=== PATIENT | male | born 1995 | race Caucasian/White ===

== ENCOUNTER 2019-09-07 18:37 | Emergency (ER) | payer OTHER ==
[2019-09-07] MEDS ORDERED: TETANUS & DIPHTHERIA TOX,ADULT 0.5 ML VIAL ONE (19:05)
[2019-09-07] MEDS ORDERED: BUPIVACAINE 0.5% PF 10 ML VIAL ONE (19:05)
--- NOTE | 2019-09-07 20:17 | ER ---
Nurse's Notes [facility] Name: Bennett Martin Age: 24 yrs Sex: Male : 1995 Arrival Date: 09/07/2019 Time: 18:41 Bed 9 Private MD: Diagnosis: Thumb Laceration Presentation: 09/06 18:51 Chief complaint: Patient states: was at work and was slicing food and cut his left em thumb, lac. noted to the left thumb, bleeding has stopped, unknown last tetanus shot. Coronavirus screen: Proceed with normal triage. Patient denies a cough. Patient denies shortness of breath or difficulty breathing. Patient denies measured and/or subjective temperature greater than 100.4F prior to today's visit. Patient denies travel on a cruise ship or to a country the [facility] currently lists as an affected area. Patient denies contact with known and/or suspected case of COVID-19. Ebola Screen: Patient negative for fever greater than or equal to 101.5 degrees Fahrenheit, and additional compatible Ebola Virus Disease symptoms Patient denies exposure to infectious person. Patient denies travel to an Ebola-affected area in the 21 days before illness onset. No symptoms or risks identified at this time. Initial Sepsis Screen: Does the patient meet any 2 criteria? No. Patient's initial sepsis screen is negative. Does the patient have a suspected source of infection? Yes: Skin breakdown/wound. Risk Assessment: Do you want to hurt yourself or someone else? Patient reports no desire to harm self or others. Onset of symptoms was September 07, 2019. 18:51 Method Of Arrival: Ambulatory em 18:51 Acuity: DOYLE 4 em Historical: - Allergies: 18:54 No Known Allergies; em - PMHx: 18:54 Heart Murmur; ADD/ADHD; em - PSHx: 18:54 Appendectomy; Ear Tubes; em - Immunization history:: Last tetanus immunization: unknown. - Social history:: Smoking status: Patient reports the use of cigarette tobacco products, denies chronic smoking, but will smoke occasionally. Screenin:55 Abuse screen: Denies threats or abuse. Nutritional screening: No deficits noted. em Tuberculosis screening: No symptoms or risk factors identified. Fall Risk None identified. Assessment: 19:13 General: Appears uncomfortable, Behavior is appropriate for age. Pain: Complains of ea pain in palmar aspect of distal phalanx of right thumb. Neuro: Level of Consciousness is awake, alert, obeys commands, Oriented to person, place, time. Respiratory: Airway is patent Respiratory effort is even, unlabored, Respiratory pattern is regular, symmetrical. Derm: Skin is pink, warm \T\ dry. Injury Description: Laceration sustained to dorsal aspect of distal phalanx of left thumb is not bleeding. 20:25 Reassessment: Patient appears in no apparent distress at this time. Patient is alert, rr5 oriented x 3, equal unlabored respirations, skin warm/dry/pink. discharge instruction given and explained without complaints made. Vital Signs: 18:51 BP 154 / 91; Pulse 89; Resp 18; Temp 97.6; Pulse Ox 100% on R/A; Weight 56.7 kg; Height em 5 ft. 8 in. (172.72 cm); Pain 5/10; 20:10 BP 125 / 78; Pulse 80; Resp 17; Pulse Ox 99% on R/A; rr5 18:51 Body Mass Index 19.01 (56.70 kg, 172.72 cm) em ED Course: 18:41 Patient arrived in ED. mr 18:46 Carrington Mcdonald PA is PHCP. jm 18:46 Tomer Ames MD is Attending Physician. [facility] 18:51 Stanton Muller, RAVI is Primary Nurse. em 18:54 Triage completed. em 18:54 Arm band placed on. em 19:15 Patient has correct armband on for positive identification. Bed in low position. Call ea light in reach. 20:00 Assist provider with laceration repair on left hand and dorsal aspect of distal phalanx rr5 of left thumb that was 2.5 cm. or less using sutures. Set up tray. Performed by Carrington JACKSON Dressed with 4X4s, Kerlix, Neosporin, Patient tolerated well. 20:00 Patient did not have IV access during this emergency room visit. rr5 Administered Medications: 19:02 Drug: Tetanus-Diphtheria Toxoid Adult 0.5 ml {Job Molder: [employer]. Exp: em 04/29/2021. Lot #: [id number]. } Route: IM; Site: right deltoid; 20:00 Follow up: Response: No adverse reaction rr5 19:13 Drug: Marcaine (0.5 %) 10 ml {Note: administered by provider.} Volume: 10 ml; Route: ea Infiltration; 20:15 Follow up: Response: No adverse reaction rr5 09/07 00:29 Not Given (Other Intervention Used): Lidocaine (1 %) 5 ml 5 ml Infiltration once; to rr5 bedside Outcome: 09/06 20:16 Discharge ordered by MD. liao 20:25 Discharged to home ambulatory. rr5 20:25 Condition: stable 20:25 Discharge instructions given to patient, Instructed on discharge instructions, follow up and referral plans. wound care, Demonstrated understanding of instructions, follow-up care, wound care. 20:29 Patient left the ED. rr5 09/07 00:30 Patient left the ED. rr5 Signatures: Carrington Mcdonald PA PA jmm Rivera, Mary mr Munoz, Edgar, RN RN Glenys Delgado, RN RN Bucky Montemayor RN RN rr5
--- NOTE | 2019-09-07 20:17 | EDPHYS ---
Physician Documentation [facility] Name: Bennett Martin Age: 24 yrs Sex: Male : 1995 Arrival Date: 09/07/2019 Time: 18:41 Bed 9 Private MD: ED Physician Tomer Ames HPI: 09/06 18:51 This 24 yrs old Male presents to ER via Unassigned with complaints of Thumb jmm Laceration. 18:51 The patient or guardian reports injury, a laceration. Onset: The symptoms/episode jmm began/occurred acutely, just prior to arrival. Modifying factors: The symptoms are alleviated by nothing, the symptoms are aggravated by nothing. This is a 24 year old male with no chronic medical conditions that presents to the ED with complaints of left thumb pain which occurred after accidently slicing his thumb with a knife while at work. Denies other injury. Historical: - Allergies: 18:54 No Known Allergies; em - PMHx: 18:54 Heart Murmur; ADD/ADHD; em - PSHx: 18:54 Appendectomy; Ear Tubes; em - Immunization history:: Last tetanus immunization: unknown. - Social history:: Smoking status: Patient reports the use of cigarette tobacco products, denies chronic smoking, but will smoke occasionally. ROS: 18:51 Constitutional: Negative for fever, chills, and weight loss, Cardiovascular: Negative jmm for chest pain, palpitations, and edema, Respiratory: Negative for shortness of breath, cough, wheezing, and pleuritic chest pain. 18:51 Skin: Positive for laceration(s). 18:51 All other systems are negative. Exam: 18:51 Constitutional: This is a well developed, well nourished patient who is awake, alert, jmm and in no acute distress. Head/Face: atraumatic. Eyes: EOMI, no conjunctival erythema appreciated ENT: Moist Mucus Membranes Neck: Trachea midline, Supple Chest/axilla: Normal chest wall appearance and motion. Cardiovascular: Regular rate and rhythm. No edema appreciated Respiratory: Normal respirations, no respiratory distress appreciated Abdomen/GI: Non distended, soft Back: Normal ROM 18:51 Skin: 2 cm laceration noted to the left distal thumb. 18:51 Neuro: Orientation: is normal, Mentation: is normal, Memory: is normal. 18:51 Psych: Behavior/mood is pleasant, cooperative. Vital Signs: 18:51 BP 154 / 91; Pulse 89; Resp 18; Temp 97.6; Pulse Ox 100% on R/A; Weight 56.7 kg; Height em 5 ft. 8 in. (172.72 cm); Pain 5/10; 20:10 BP 125 / 78; Pulse 80; Resp 17; Pulse Ox 99% on R/A; rr5 18:51 Body Mass Index 19.01 (56.70 kg, 172.72 cm) em Laceration: 20:13 Wound Repair of 3cm ( 1.2in ) subcutaneous laceration to dorsal aspect of distal jmm phalanx of left thumb. Distal neuro/vascular/tendon intact. Anesthesia: Digital block administered with 4 mls of 0.5% marcaine. Wound prep: Simple cleansing with betadine by me. Skin closed with 7 5-0 Prolene using simple sutures and sterile technique. Patient tolerated well. MDM: 18:49 Patient medically screened. [facility] 20:13 Data reviewed: vital signs, nurses notes. Counseling: I had a detailed discussion with yanni the patient and/or guardian regarding: the historical points, exam findings, and any diagnostic results supporting the discharge/admit diagnosis, lab results, the need for outpatient follow up, to return to the emergency department if symptoms worsen or persist or if there are any questions or concerns that arise at home. ED course: Patient given strict return precautions. Patient understood and agrees with the plan of care. . ED course: Patient given wound infection return precautions. . 09/07 00:29 Order name: Prolene, Sutures; Complete Time: 00: rr5 09/07 00:29 Order name: Dressing - Wound; Complete Time: 00:29 rr5 09/07 00:29 Order name: Gloves, Sterile; Complete Time: 00:29 rr5 09/07 00:29 Order name: Setup Suture Tray; Complete Time: 00: rr5 Administered Medications: 19:02 Drug: Tetanus-Diphtheria Toxoid Adult 0.5 ml {Lining [employer] Hand: [employer]. Exp: em 04/29/2021. Lot #: [id number]. } Route: IM; Site: right deltoid; 20:00 Follow up: Response: No adverse reaction rr5 19:13 Drug: Marcaine (0.5 %) 10 ml {Note: administered by provider.} Volume: 10 ml; Route: ea Infiltration; 20:15 Follow up: Response: No adverse reaction 5 09/07 00:29 Not Given (Other Intervention Used): Lidocaine (1 %) 5 ml 5 ml Infiltration once; to rr5 bedside Disposition: 09/07/19 20:16 Discharged to Home. Impression: Thumb Laceration. - Condition is Stable. - Discharge Instructions: Laceration Care, Adult. - Medication Reconciliation Form, Thank You Letter, Antibiotic Education, Prescription Opioid Use, Work release form form. - Follow up: Private Physician; When: 2 - 3 days; Reason: Recheck today's complaints, Continuance of care, Re-evaluation by your physician. Addendum: 09/10/2019 07:20 Co-signature as Attending Physician, Tomer Ames MD. r n Signatures: Carrington Mcdonald PA PA jmm Munoz, Edgar, RN Tomer Jean Baptiste MD MD rn Antunez, Elena, RN RN ea Roque, Raymond RN RN rr5 Corrections: (The following items were deleted from the chart) 09/06 20:29 20:16 09/07/2019 20:16 Discharged to Home. Impression: Thumb Laceration. Condition is rr5 Stable. Forms are Medication Reconciliation Form, Thank You Letter, Antibiotic Education, Prescription Opioid Use. Follow up: Private Physician; When: 2 - 3 days; Reason: Recheck today's complaints, Continuance of care, Re-evaluation by your physician. [facility] 09/07 00:30 09/06 20:29 09/07/2019 20:16 Discharged to Home. Impression: Thumb Laceration. rr5 Condition is Stable. Discharge Instructions: Laceration Care, Adult. Forms are Medication Reconciliation Form, Thank You Letter, Antibiotic Education, Prescription Opioid Use, Work release form. Follow up: Private Physician; When: 2 - 3 days; Reason: Recheck today's complaints, Continuance of care, Re-evaluation by your physician. rr5
[2019-09-07 20:34] VITALS: TEMP 97.6
[2019-09-08 01:09] VITALS: BP 125/78; O2SAT 99
== END 2019-09-08 00:30 | disposition home or self-care (01) ==
LOC: ER 18:37
PROC: 0JQK0ZZ Repair Left Hand Subcutaneous Tissue and Fascia, Open Approach (ICD-10-PCS; principal; 2019-09-08)
DX: S61.012A Laceration without foreign body of left thumb without damage to nail, initial encounter (principal); F17.210 Nicotine dependence, cigarettes, uncomplicated; W26.0XXA Contact with knife, initial encounter; Y93.89 Activity, other specified; Y92.89 Other specified places as the place of occurrence of the external cause; Y99.8 Other external cause status; Z23 Encounter for immunization
CPT/HCPCS: 90471; 90714; 99283

== ENCOUNTER 2019-09-16 12:14 | Emergency (ER) | payer OTHER ==
--- NOTE | 2019-09-16 13:29 | EDPHYS ---
Physician Documentation [facility] Name: Bennett Martin Age: 24 yrs Sex: Male : 1995 Arrival Date: 09/16/2019 Time: 12:23 Bed 12 Private MD: ED Physician Rico Reinoso HPI: 09/15 13:24 This 24 yrs old Male presents to ER via Ambulatory with complaints of Suture jmm Removal. 13:24 The patient has sutures on the palmar aspect of distal phalanx of left thumb. jmm Sutures/jamal progress: The patient has no c/o's. The wound is well-healing with no redness, swelling, discharge, or dehiscence reported. This is a 24 year old male with a history of ADD/ADHD that presents to the ED with need for suture removal. . Historical: - Allergies: 12:56 No Known Allergies; bp - Home Meds: 12:56 None [Active]; bp - PMHx: 12:56 ADD/ADHD; Heart Murmur; bp - Immunization history:: Last tetanus immunization: up to date. - Social history:: Smoking status: unknown. ROS: 13:24 Constitutional: Negative for fever, chills, and weight loss, Cardiovascular: Negative jmm for chest pain, palpitations, and edema, Respiratory: Negative for shortness of breath, cough, wheezing, and pleuritic chest pain. 13:24 Skin: Positive for laceration(s). 13:24 All other systems are negative. Exam: 13:24 Constitutional: This is a well developed, well nourished patient who is awake, alert, jmm and in no acute distress. Cardiovascular: Regular rate and rhythm. No edema appreciated Respiratory: Normal respirations, no respiratory distress appreciated 13:24 Head/Face: atraumatic. Eyes: EOMI, no conjunctival erythema appreciated ENT: Moist Mucus Membranes Neck: Trachea midline, Supple Chest/axilla: Normal chest wall appearance and motion. Abdomen/GI: Non distended, soft Back: Normal ROM 13:24 Neuro: Awake and alert, normal gait Psych: Behavior is normal, Mood is normal, Patient is cooperative and pleasant 13:24 Skin: 13:24 Skin: healing laceration noted to the left thumb. Vital Signs: 12:54 BP 123 / 68; Pulse 62; Resp 16; Temp 97.5; Pulse Ox 100% ; Weight 56.7 kg; Height 5 ft. bp 8 in. (172.72 cm); 12:54 Body Mass Index 19.01 (56.70 kg, 172.72 cm) bp Procedures: 13:24 Suture/Staple removal: Removed 7 sutures, from left thumb, site appears well healed, yanni Patient tolerated well. MDM: 13:15 Patient medically screened. [facility] 13:24 Data reviewed: vital signs, nurses notes. Counseling: I had a detailed discussion with yanni the patient and/or guardian regarding: the historical points, exam findings, and any diagnostic results supporting the discharge/admit diagnosis, the need for outpatient follow up, to return to the emergency department if symptoms worsen or persist or if there are any questions or concerns that arise at home. ED course: Patient given wound infection return precautions. Patient understood and agrees with the plan of care. . Administered Medications: No medications were administered Disposition: 19:09 Co-signature as Attending Physician, Rico Reinoso MD. ma2 Disposition: 09/16/19 13:29 Discharged to Home. Impression: Encounter for removal of sutures. - Condition is Stable. - Discharge Instructions: Suture Removal, Care After. - Medication Reconciliation Form, Thank You Letter, Antibiotic Education, Prescription Opioid Use form. - Follow up: Private Physician; When: 2 - 3 days; Reason: Recheck today's complaints, Continuance of care, Re-evaluation by your physician. Signatures: Carrington Mcdonald PA PA jmm Smirch, Shelby, RN RN ss Peltier, Brian, RN RN bp Alzahri, Mohammad, MD MD ma2 Corrections: (The following items were deleted from the chart) 13:32 13:29 09/16/2019 13:29 Discharged to Home. Impression: Encounter for removal of ss sutures. Condition is Stable. Forms are Medication Reconciliation Form, Thank You Letter, Antibiotic Education, Prescription Opioid Use. Follow up: Private Physician; When: 2 - 3 days; Reason: Recheck today's complaints, Continuance of care, Re-evaluation by your physician. yanni
--- NOTE | 2019-09-16 13:29 | ER ---
Nurse's Notes [facility] Name: Bennett Martin Age: 24 yrs Sex: Male : 1995 Arrival Date: 09/16/2019 Time: 12:23 Bed 12 Private MD: Diagnosis: Encounter for removal of sutures Presentation: 09/15 12:54 Chief complaint: Patient states: SUTURES PLACED TO LEFT THUMB 9 DAYS AGO, RETURNING FOR bp REMOVAL. Coronavirus screen: Proceed with normal triage. Ebola Screen: No symptoms or risks identified at this time. Initial Sepsis Screen: Does the patient meet any 2 criteria? No. Patient's initial sepsis screen is negative. Does the patient have a suspected source of infection? No. Patient's initial sepsis screen is negative. Risk Assessment: Do you want to hurt yourself or someone else? Patient reports no desire to harm self or others. Onset of symptoms is unknown. 12:54 Method Of Arrival: Ambulatory bp 12:54 Acuity: DOYLE 5 bp Triage Assessment: 13:00 General: Appears in no apparent distress. comfortable, Behavior is calm, cooperative, bp appropriate for age. Pain: Denies pain. EENT: No deficits noted. Neuro: No deficits noted. Cardiovascular: No deficits noted. Respiratory: No deficits noted. GI: No signs and/or symptoms were reported involving the gastrointestinal system. : No signs and/or symptoms were reported regarding the genitourinary system. Derm: No deficits noted. Musculoskeletal: No deficits noted. Injury Description: SUTURES TO L THUMB. Historical: - Allergies: 12:56 No Known Allergies; bp - Home Meds: 12:56 None [Active]; bp - PMHx: 12:56 ADD/ADHD; Heart Murmur; bp - Immunization history:: Last tetanus immunization: up to date. - Social history:: Smoking status: unknown. Screenin:00 Abuse screen: Denies threats or abuse. Denies injuries from another. Nutritional bp screening: No deficits noted. Tuberculosis screening: No symptoms or risk factors identified. Fall Risk None identified. Assessment: 13:00 General: SEE TRIAGE. bp Vital Signs: 12:54 BP 123 / 68; Pulse 62; Resp 16; Temp 97.5; Pulse Ox 100% ; Weight 56.7 kg; Height 5 ft. bp 8 in. (172.72 cm); 12:54 Body Mass Index 19.01 (56.70 kg, 172.72 cm) bp ED Course: 12:23 Patient arrived in ED. fj1 12:33 Carrington Mcdonald PA is PHCP. yanni 12:33 Rico Reinoso MD is Attending Physician. [facility] 12:55 Triage completed. bp 12:56 Arm band placed on. bp 12:57 Wilfredo Gallego, RN is Primary Nurse. bp 13:00 Patient has correct armband on for positive identification. Bed in low position. Call bp light in reach. Side rails up X2. 13:23 Wilfredo Gallego, RN is Primary Nurse. bp 13:25 Removal of Removed sutures from left thumb Suture site is well healed Patient tolerated bp well. 13:32 No provider procedures requiring assistance completed. Patient did not have IV access ss during this emergency room visit. Administered Medications: No medications were administered Outcome: 13:29 Discharge ordered by MD. [facility] 13:32 Discharged to home ambulatory. ss 13:32 Condition: good 13:32 Discharge instructions given to patient, Instructed on discharge instructions, follow up and referral plans. medication usage, Demonstrated understanding of instructions, follow-up care, wound care. 13:32 Patient left the ED. ss Signatures: Carrington Mcdonald PA PA jmm Smirch, Shelby, RN RN Wilfredo Gallego, RAVI RN Renzo Chowdhury fj Corrections: (The following items were deleted from the chart) 13:24 13:00 Injury Description: SUTURES TO R THUMB bp bp
[2019-09-16 13:50] VITALS: BP 123/68; TEMP 97.5; O2SAT 100
== END 2019-09-16 13:32 | disposition home or self-care (01) ==
LOC: ER 12:14
DX: Z48.02 Encounter for removal of sutures (principal)
CPT/HCPCS: 99281